=== PATIENT | female | born 1975 | race Caucasian/White ===

== ENCOUNTER 2017-09-18 16:45 | Emergency (ER) | payer SELFPAY ==
[~2017-09-18] VITALS: Ht 157.5 cm; Wt 52.4 kg
[2017-09-18 16:50] VITALS: Ht 157.5 cm; Wt 52.4 kg
[2017-09-18] MEDS ORDERED: ONDANSETRON (ODT) 4 MG TAB ODT STA (18:43)
[2017-09-18] MEDS ORDERED: ACET325T33 PO (18:45)
[2017-09-18] MEDS ORDERED: ONDA4TAB14 PO (18:45)
[2017-09-18] MEDS ORDERED: ACETAMINOPHEN 325 MG TAB PO ONE (19:00)
--- NOTE | 2017-09-18 19:12 | ERD ---
ER Documentation Chief Complaint Chief Complaint FEVER , COUGH , VOMITING X 4 DAYS HPI -year-old female presents to the emergency department complaining of fever, cough and a few episodes of posttussive vomiting in the past 4 days. Patient denies any abdominal pain, fevers. She denies any and medications for this ROS All systems reviewed and are negative except as per history of present illness. Medications Home Meds Active Scripts Acetaminophen* (Tylenol*) 325 Mg Tablet, 2 TAB PO Q6 Y for PAIN AND OR ELEVATED TEMP, #20 TAB Prov:EDER BASHIR PA-C 09/18/17 Ondansetron (Ondansetron Odt) 4 Mg Tab.rapdis, 4 MG PO Q6H Y for NAUSEA AND/OR VOMITING, #14 TAB Prov:EDER BASHIR PA-C 09/18/17 Allergies Allergies: Coded Allergies: Penicillins (Verified Allergy, Intermediate, RASH, 09/18/17) PMhx/Soc History of Surgery: Yes Anesthesia Reaction: No Hx Neurological Disorder: No Hx Respiratory Disorders: No Hx Cardiac Disorders: No Hx Psychiatric Problems: No Hx Miscellaneous Medical Probl: Yes (LUPUS) Hx Alcohol Use: No Hx Substance Use: No Hx Tobacco Use: No Smoking Status: Never smoker Physical Exam Vitals Vital Signs Date Time Temp Pulse Resp B/P Pulse Ox O2 Delivery O2 Flow Rate FiO2 09/18/17 16:50 99.6 65 18 149/85 98 Physical Exam Const: Developed well-nourished no acute distress Head: Atraumatic Eyes: Normal Conjunctiva ENT: Normal External Ears, Nose and Mouth. Neck: Full range of motion..~ No meningismus. Resp: Clear to auscultation bilaterally Cardio: Regular rate and rhythm, no murmurs Abd: Soft, non tender, non distended. Normal bowel sounds Skin: No petechiae or rashes Back: No midline or flank tenderness Ext: No cyanosis, or edema Neur: Awake and alert Psych: Normal Mood and Affect Results 24 hrs Current Medications Medications (Trade) Dose Ordered Sig/Yola Route PRN Reason Start Time Stop Time Status Last Admin Dose Admin Ondansetron HCl (Zofran Odt) 8 mg ONCE STAT ODT 09/18/17 18:43 09/18/17 18:45 DC 12/25/17 18:50 Acetaminophen (Tylenol Tab) 650 mg ONCE ONCE PO 09/18/17 19:00 09/18/17 19:01 DC 09/18/17 18:50 Procedures/MDM This is a well-appearing 42-year-old female presenting to the emergency department with a viral syndrome. There is no evidence of acute abdominal conditions or pneumonia, strep pharyngitis. Patient was given Zofran in the ED and was able to tolerate fluids.. Patient is stable to be discharged home with prescription for Tylenol and Zofran. Departure Diagnosis: Primary Impression: Upper respiratory infection Condition: Stable Patient Instructions: Preventing Common Respiratory Infections, Diet, Vomiting Or Diarrhea [6Yr-Adult], Uri, Viral, No Abx (Adult), Vomiting And Diarrhea, Nonspecific (Adult) Referrals: NO PRIMARY,CARE PHYSICIAN (PCP) Additional Instructions: FOLLOW UP WITH YOUR PRIMARY CARE PHYSICIAN TOMORROW.Return to this facility if you are not improving as expected. Take all medicines as directed. Return to this facility if you are not improving as expected. EDER BASHIR PA-C Sep 18, 2017 19:12
== END 2017-09-18 19:41 | disposition home or self-care (01) ==
LOC: FTE 16:45
DX: J06.9 Acute upper respiratory infection, unspecified (principal)
CPT/HCPCS: 99283